=== PATIENT | male | born 1950 | race Caucasian/White ===

== ENCOUNTER → 2016-09-24 | Day surgery (SDC) | payer MEDICARE, MEDICAID ==
[2016-09-16 11:57] VITALS: BMI 40.4
[~2016-09-24] MED LIST: BSS 500 ml-Vancomycin 10 mg-Phenylephrine 1 mg Irrigation IR ONE; CHONDROITIN SULFATE 0.5 ML/PFS INTRAOC ONE; DEXAMETHASONE 4 MG/ML VIAL IV PRN; DIAZEPAM 5 MG TAB PO PRN; FENTANYL 100 MCG/2 ML VIAL IV PRN; FENTANYL 100 MCG/2 ML VIAL ONE; HYDROCODONE 5 MG/ACETAMIN 325 MG TAB PO PRN; Hyaluronate Sodium (Provisc) 5.5 mg/0.55 ml syringe INTRAOC ONE; KETOROLAC TROMETH 30 MG/ML VIAL IV PRN; LABETALOL 20 MG/4 ML SYRINGE IV PRN; LR 1,000 ML IV ONE; LR 1,000 ML IV SCH; MIDAZOLAM 2 MG/2 ML VIAL ONE; NS 1,000 ML IV SCH; NS 250 ML IV SCH; ONDANSETRON HCL 4 MG/2 ML VIAL IV PRN; PHENYLEPHRINE 2.5% OPHTH SOLN 2 ML BOT OP EYE ONE; SCOPOLAMINE TRANSDERMAL PATCH TOP PRN; TETRACAINE 0.5% 2 ML OPHTH SOLN OP EYE ONE; TETRACAINE 0.5% 2 ML OPHTH SOLN OP EYE PRN; TROPICAMIDE 1% OPHTH SOLN 2 ML BOTTLE OP EYE ONE; Vancomycin 10 MG, Phenylephrine 1,000 MCG in Balanced Salt Solution 500 ML IO ONE; hydrALAZINE 20 MG/ML VIAL IV PRN
--- NOTE | 2016-09-24 07:12 | SC.ANESEVA ---
Anesthesia Eval & Plan ([facility]) - Providers Stated Procedure: right eye cataract surgery Surgeon:: Danae Casillas - Medications/Allergies Allergies: Allergies No Known Drug Allergies Allergy (Mild, Verified 09/24/16 06:42) Unknown/See Comments NKDA Home Medications: Home Medication List Metformin HCl [Metformin HCl ER] 1,000 mg PO BID 09/16/16 [History] Montelukast Sodium [Singulair] 10 mg PO DAILY 09/16/16 [History] Sulfasalazine BID 09/16/16 [History] Current Medication List: Reviewed - Focused Physical Exam NPO since: after Midnight Mallampati: Class II Thyromental Distance: Greater than 3 Neck: Full Range of Motion Dental: Normal - no significant findings Cardiovascular/Chest: Normal Respiratory: Lungs clear Prone to Motion Sickness: No Other: Diagnoses COMBINED FORMS OF AGE-RELATED CATARACT, RIGHT EYE (09/24/16) Allergies Allergy/AdvReac Type Severity Reaction Status Date / Time No Known Drug Allergies Allergy Mild Unknown/See Verified 09/24/16 06:42 Comments Home Medications Medication Instructions Recorded Last Taken Type Albuterol Sulfate [Ventolin Hfa] 90 mcg IH Q4 PRN 09/04/12 09/09/12 History Alprazolam [Xanax] 1 mg PO DAILY PRN 09/04/12 09/09/12 History Irbesartan/Hydrochlorothiazide 1 each PO DAILY 09/04/12 09/09/12 History [Avalide 150-12.5 mg Tablet] Metoprolol Succinate (XL) [TOPROL 100 mg PO DAILY 09/04/12 09/09/12 History XL; Metoprolol succinate] Aspirin [Chewable Aspirin] 81 mg PO 09/05/12 09/09/12 History Atorvastatin [Lipitor 80 mg 80 mg PO HS 09/05/12 09/09/12 History Tablet] Cholecalciferol (Vitamin D3) 50,000 unit PO 09/05/12 09/09/12 History [D3-50] Clopidogrel Bisulfate [Plavix] 75 mg PO DAILY 09/05/12 09/09/12 History Lisinopril [Prinivil, Zestril] 5 mg PO DAILY 09/05/12 09/09/12 History Nitroglycerin [Nitroquick] 0.4 mg SL PRN 09/05/12 09/09/12 History Pantoprazole Sodium [Protonix] 40 mg PO 0600 09/05/12 09/09/12 History Potassium Chloride 20 Meq/100 ml 20 meq PO BID 09/05/12 09/09/12 History Albuterol/Ipratropium Neb [Duoneb] 3 ml NEB Q6 PRN 09/07/12 09/09/12 History Azithromycin 500 mg PO DAILY 09/07/12 09/09/12 History Cefdinir [Omnicef] 300 mg PO BID 09/07/12 09/09/12 History Furosemide [Lasix] 20 mg PO DAILY 09/07/12 09/09/12 History Prednisone [Deltasone, Orasone] 10 mg PO . DIRECTED 09/07/12 09/09/12 History Metformin HCl [Metformin HCl ER] 1,000 mg PO BID 09/16/16 Unknown History Montelukast Sodium [Singulair] 10 mg PO DAILY 09/16/16 Unknown History Sulfasalazine BID 09/16/16 Unknown History Height and Weight Patient's height 5 ft 11 in Patient's weight 131.36 kg Weight (Calculated Kilograms) 131.360 BMI 40.4 Vital Signs Temperature 98.5 F 09/24/16 06:21 Pulse Rate 80 09/24/16 06:21 Respiratory Rate 18 09/24/16 06:21 Blood Pressure 142/74 09/24/16 06:21 Pulse Oxygen Saturation 93 09/24/16 06:21 - Anesthetic Plan Anesthesia Type: MAC ASA Class: 3 - Focused Review of Systems Cardiac History: Yes: Hx Hypertension, Hx Angina, Hx Heart Attack (12 YEARS), Hx Cardiac Catheterization, Hx Angioplasty, Hx Coronary Stent, Hx Cardiac Disorders, Hx Abnormal Cholesterol/Hyperlipidemia, Hx Congestive Heart Failure HEENT: No: Other HEENT Problems Respiratory: Yes: Hx Asthma, Hx Chronic Obstructive Pulmonary Disease (COPD) Gastrointestinal: Yes: Hx Gastroesophageal Reflux Disease, Hx Diverticulitis Neurological/Musculoskeletal: No: Hx Neurological Disorders Endocrine: Yes: Hx Non-Insulin Dependent Diabetes Smoking Status: Never smoker
[2016-09-24 07:44] VITALS: TEMP 97.3
--- NOTE | 2016-09-24 07:55 | HIMOPRPT ---
DATE OF PROCEDURE: 09/24/16 PREOPERATIVE DIAGNOSIS: Cataract Right eye. POSTOPERATIVE DIAGNOSIS: Cataract Right eye. PROCEDURE: Cataract extraction by phacoemulsification of the Right eye SURGEON: Danae Casillas MD. ANESTHESIA: IV Sedation/Topical. COMPLICATIONS: None. PRE-OPERATIVE EVALUATION: The patient has been examined and deemed medically stable for cataract extraction with no apparent need for inpatient observation; outpatient setting is appropriate. Patient appears to be oriented to time, place and person. PROCEDURE IN DETAIL: The correct eye confirmed by patient, doctor, staff and paperwork. The operative eye was then marked by the doctor in the preoperative area. Eye drops were instilled into the operative eye to dilate the pupil. The patient was transported to the operating room and was placed in the supine position. A time out was performed before the beginning of the procedure. The operative eye was prepped and draped in the usual sterile fashion for ophthalmic surgery, taking care to isolate the lashes from the surgical field. Topical anesthetic drops were instilled into the operative eye. A lid speculum was placed. Betadine 5% was instilled in the operative eye for antiseptic. Microscope was brought into place for use throughout the case. The eye was inspected. A paracentesis incision was created with a side port knife. The temporal limbal corneal incision was performed with a annmarie blade. Viscoelastic was injected into the anterior chamber. Capsule forceps were used to create a capsulorhexis. Hydrodissection was performed with BSS. The nucleus was removed by phacoemulsification. Phaco time is noted below. The remaining cortical material was removed by I&A. The capsular bag was noted to be intact and distended with viscoelastic. The Intraocular lens was placed into the intact bag and centered without difficulty. The remaining viscoelastic was removed by I&A. Betadine 5% drops were placed to inspect wound and for antisepsis. Inspection revealed watertight wounds. The lid speculum was removed. Postoperative medications were instilled into the eye and a shield secured over the operative eye. IOL Type [id number] SN [id number] IOL Power 22.0 CDE 5.47 Discharge Summary: There were no complications and the patient was taken to the postoperative area in good condition. Postoperative instructions and outpatient follow up time were given.
[2016-09-24 07:56] VITALS: BP 109/54; PULSE 71
--- NOTE | 2016-09-24 09:17 | SC.ANESPOS ---
Post-Anesthesia Note LOC: Fully Awake Post-Anesthesia Assessment: Awake, Returned to Baseline, Hemodynamically Stable , Pain Control Adequate Phase I & II Recovery Complete: Yes Apparent Anesthesia Complication: No : N - Vital Signs Blood Pressure: 109/54 Pulse: 71 Resp Rate: 18 O2 Sat: 94 Temp: 97.3 F
== END ==
LOC: CPSC 06:08
PROVIDERS: ATTEND Ophthalmology
PROC: 08RJ3JZ Replacement of Right Lens with Synthetic Substitute, Percutaneous Approach (ICD-10-PCS; principal; 2016-09-24 07:30)
DX: H25.811 Combined forms of age-related cataract, right eye (principal); E11.9 Type 2 diabetes mellitus without complications; I25.10 Atherosclerotic heart disease of native coronary artery without angina pectoris; I25.2 Old myocardial infarction; J44.9 Chronic obstructive pulmonary disease, unspecified; Z79.02 Long term (current) use of antithrombotics/antiplatelets; Z79.899 Other long term (current) drug therapy; I10 Essential (primary) hypertension; E66.9 Obesity, unspecified; K21.9 Gastro-esophageal reflux disease without esophagitis; N40.0 Benign prostatic hyperplasia without lower urinary tract symptoms; Z95.5 Presence of coronary angioplasty implant and graft; Z87.891 Personal history of nicotine dependence; Z79.84 Long term (current) use of oral hypoglycemic drugs
CPT/HCPCS: 66984; 82962; A9270; V2632; J2250; J3010; J3490